=== PATIENT | male | born 1985 | race Caucasian/White ===

== ENCOUNTER 2016-12-06 09:03 | Emergency (ER) | payer OTHER, BC ==
[2016-12-06] MEDS ORDERED: IBUP200T43 PO (09:33)
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
[2016-12-06] MEDS: ONDANSETRON ODT 4 MG TAB.RAPDIS PO ONE (09:56)
[2016-12-06] MEDS: HYDROCODONE/APAP 10/325 TABLET. PO ONE (09:56)
[2016-12-06] MEDS: DIPHTH,PERTUSS(ACELL),TET TOX 0.5 ML DISP.SYRIN. VAX IM ONE (09:56)
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
[2016-12-06] MEDS ORDERED: HYDR-971 PO (10:42)
[2016-12-06 10:55] VITALS: BP 124/68
== END 2016-12-06 10:55 | disposition home or self-care (01) ==
LOC: ER 09:03
DX: S39.012A Strain of muscle, fascia and tendon of lower back, initial encounter (principal); S80.12XA Contusion of left lower leg, initial encounter; S80.11XA Contusion of right lower leg, initial encounter; V89.2XXA Person injured in unspecified motor-vehicle accident, traffic, initial encounter; Y93.89 Activity, other specified; Y99.8 Other external cause status; Y92.89 Other specified places as the place of occurrence of the external cause
CPT/HCPCS: 72100; 73562; 90471; 90715; 99284; Q0162